=== PATIENT | male | born 1950 | race Caucasian/White ===

== ENCOUNTER 2020-11-01 13:03 | Outpatient (CLI) | payer MEDICARE ==
[2020-11-01 14:39] LABS: MICROSCOPIC NOT IND
[2020-11-01 14:43] LABS: INTERNATIONAL NORMALIZED RATIO 1.05 (0.93-1.1); PROTHROMBIN TIME 11.2 Seconds (9.6-11.5)
[2020-11-01 14:47] LABS: CALCIUM 9.2 mg/dL (8.5-10.1)
[2020-11-01 14:48] LABS: CREATININE 0.83 mg/dL (0.7-1.3)
[2020-11-01 14:55] LABS: ANION GAP 4 mmol/L (5-15); CHLORIDE 106 mmol/L (98-107)
[2020-11-01] MEDS ORDERED: ROSU5TAB PO (15:22)
[2020-11-01] MEDS ORDERED: RABE20TA18 PO (15:22)
[2020-11-01] MEDS ORDERED: TAMS-11 PO (15:22)
[2020-11-01] MEDS ORDERED: METO25TA35 PO (15:22)
[2020-11-01] MEDS ORDERED: MULT-449 PO (15:22)
== END 2020-11-01 23:59 | disposition home or self-care (01) ==
LOC: STAR 13:03
PROVIDERS: ATTEND Urology
DX: Z01.818 Encounter for other preprocedural examination (principal); N40.1 Benign prostatic hyperplasia with lower urinary tract symptoms; Z20.822 Contact with and (suspected) exposure to COVID-19
CPT/HCPCS: 36415; 80048; 81003; 85610; 87086; 93005; U0003

== ENCOUNTER 2020-11-07 09:45 | Day surgery (SDC) | payer MEDICARE ==
[~2020-11-07] VITALS: Ht 175.3 cm; Wt 89.8 kg
[~2020-11-07 09:45] MED LIST: METO25TA35 PO; MULT-449 PO; RABE20TA18 PO; ROSU5TAB PO; TAMS-11 PO
[2020-11-07] MEDS ORDERED: CHLORHEXIDINE 15 ML UDC ONE (10:01)
[2020-11-07] MEDS ORDERED: CHLORHEXIDINE 15 ML UDC PO ONE (10:30)
[2020-11-07] MEDS ORDERED: LACTATED RINGERS 1,000 ML IV SCH (10:30)
[2020-11-07 10:44] LABS: BASOPHILS % (AUTO) 1 % (0-1); EOSINOPHILS % (AUTO) 8 % (1-7); LYMPHOCYTES % (AUTO) 33 % (22-44); MEAN CORPUSCULAR HEMOGLOBIN 34.1 pg (27.5-34.5); MEAN PLATELET VOLUME 9.9 fL (7.4-10.4); MONOCYTES % (AUTO) 7 % (2-9); NEUTROPHILS % (AUTO) 51 % (42-75); PLATELET COUNT 188 x10^3/uL (130-400); RED BLOOD COUNT 4.57 x10^6/uL (4.38-5.82)
[2020-11-07 10:48] LABS: MD NO
[2020-11-07] MEDS ORDERED: MIDAZOLAM 1 MG/ML, 2ML ONE (11:27)
[2020-11-07] MEDS ORDERED: FENTANYL PF 250 MCG/5ML ONE (11:27)
[2020-11-07] MEDS ORDERED: KETOROLAC 30 MG/1 ML IV PRN (13:00)
[2020-11-07] MEDS ORDERED: MEPERIDINE/PF 25MG/0.5ML IVPush PRN (13:00)
[2020-11-07] MEDS ORDERED: OXYcodone 5 MG/5 ML ORAL.SOL UDC PO PRN (13:00)
[2020-11-07] MEDS ORDERED: HYDROmorphone 2 MG/ML, 1ML IVPush PRN (13:00)
[2020-11-07] MEDS ORDERED: ACETAMINOPHEN 325 MG TABLET PO PRN (13:00)
[2020-11-07] MEDS ORDERED: DIAZEPAM 5 MG/ML, 2ML IVPush PRN (13:00)
[2020-11-07] MEDS ORDERED: FENTANYL PF 100 MCG/2ML IV PRN (13:00)
[2020-11-07] MEDS ORDERED: ALBUTEROL SULFATE 2.5 MG/3 ML NPPB PRN (13:00)
[2020-11-07] MEDS ORDERED: PROMETHAZINE 25 MG/ML, 1ML IV PRN (13:00)
[2020-11-07] MEDS ORDERED: LABETALOL 5MG/ML, 20ML IV PRN (13:00)
[2020-11-07] MEDS ORDERED: hydrALAzine 20 MG/ML, 1ML IV PRN (13:00)
[2020-11-07] MEDS ORDERED: CEFAZOLIN 1,000 MG ONE (13:19)
[2020-11-07] MEDS ORDERED: DEXAMETHASONE 4 MG/ML, 1ML ONE (13:19)
[2020-11-07] MEDS ORDERED: ROCURONIUM 10MG/ML,5ML ONE (13:19)
[2020-11-07] MEDS ORDERED: GLYCOPYRROLATE 0.2MG/1ML, 5ML ONE (13:19)
[2020-11-07] MEDS ORDERED: NEOSTIGMINE 1 MG/ML, 10ML ONE (13:19)
[2020-11-07] MEDS ORDERED: SUCCINYLCHOLINE 20 MG/ML, 10ML ONE (13:19)
[2020-11-07] MEDS ORDERED: ONDANSETRON 2MG/ML, 2ML ONE (13:19)
[2020-11-07] MEDS ORDERED: PROPOFOL 10 MG/ML, 20ML ONE (13:19)
== END 2020-11-07 15:45 | disposition home or self-care (01) ==
LOC: OUT 09:45
PROVIDERS: ATTEND Urology
DX: N40.1 Benign prostatic hyperplasia with lower urinary tract symptoms (principal); N13.8 Other obstructive and reflux uropathy; R35.1 Nocturia; R39.11 Hesitancy of micturition; R39.15 Urgency of urination; R39.12 Poor urinary stream; D30.3 Benign neoplasm of bladder; N64.4 Mastodynia; I10 Essential (primary) hypertension; E78.5 Hyperlipidemia, unspecified; Z79.899 Other long term (current) drug therapy; Z88.5 Allergy status to narcotic agent; Z98.890 Other specified postprocedural states; Z82.49 Family history of ischemic heart disease and other diseases of the circulatory system
CPT/HCPCS: 36415; 52601; 85025; 88305; J0330; J0690; J1100; J2250; J2405; J2704; J2710; J3010; J7120